=== PATIENT | female | born 1940 | race Caucasian/White ===

== ENCOUNTER 2016-12-12 13:09 | Emergency (ER) | payer MEDICARE, BC ==
[2016-12-12 13:16] VITALS: BP 171/88
--- NOTE | 2016-12-12 14:38 | ED ---
Laceration/Wound HPI - HPI Summary HPI Summary: 76 female presents after sustaining a laceration to her left anterior hand while using a chainsaw to cut a tree down that had fell and blocked her driveway. Patient is not on blood thinners and has no other complaints at this time. Denies loss of sensation, numbness/tingling, bone/tendon exposure and loss of ROM. No pain at this time. - History of Current Complaint Stated Complaint: LT HAND LAC/CHAINSAW Time Seen by Provider: 12/12/16 13:24 Hx Obtained From: Patient Mechanism of Injury: Sharp/Blunt Trauma Onset/Duration: Sudden Onset Alleviating: Compression Timing: Constant Onset Severity: Mild Current Severity: Mild Pain Intensity: 1 Pain Scale Used: 0-10 Numeric Associated Signs & Symptoms: Negative Related Hx: Dominant Hand (Right) PMH/Surg Hx/FS Hx/Imm Hx Endocrine/Hematology History: Denies: Hx Diabetes, Hx Anemia Cardiovascular History: Denies: Hx Hypertension Respiratory History: Denies: Hx Asthma - Cancer History Hx Chemotherapy: Yes - BREAST Hx Radiation Therapy: Yes - BREAST, 2010 Infectious Disease History: No Infectious Disease History: Denies: Traveled Outside the [place] in Last 30 Days - Family History Known Family History: Positive: None - Social History Alcohol Use: Rare Substance Use Type: Reports: None Smoking Status (MU): Never Smoked Tobacco Review of Systems Constitutional: Negative Cardiovascular: Negative Respiratory: Negative Gastrointestinal: Negative Musculoskeletal: Negative Positive: Other - laceration Neurological: Negative Psychological: Normal All Other Systems Reviewed And Are Negative: Yes Physical Exam Triage Information Reviewed: Yes Vital Signs On Initial Exam: Initial Vitals Temp Pulse Resp BP Pulse Ox 97.5 F 100 18 171/88 99 12/12/16 13:12 12/12/16 13:12 12/12/16 13:12 12/12/16 13:12 12/12/16 13:12 tachy and high BP first set of vitals. were re-checked and improved to normal ranges. patient did just experience traumatic event/pain for original vitals to be elevated. Vital Signs Reviewed: Yes Appearance: Positive: Well-Appearing, No Pain Distress, Well-Nourished Skin: Positive: Warm, Skin Color Reflects Adequate Perfusion - <2 second cap refill, Dry, Other - 4 cm laceration on left thenar eminense with minimal bleeding. jagged in shape from chainsaw blade. some avulsion/skin flap. sutured without complicatin and using sterile technique. Head/Face: Positive: Normal Head/Face Inspection Eyes: Positive: Conjunctiva Clear ENT: Positive: Hearing grossly normal Neck: Positive: Supple, Nontender Respiratory/Lung Sounds: Positive: Clear to Auscultation, Breath Sounds Present Cardiovascular: Positive: Normal, RRR, Pulses are Symmetrical in both Upper and Lower Extremities - 2+ radial bilateral Musculoskeletal: Positive: Normal, Strength/ROM Intact. Negative: Edema Left Neurological: Positive: Normal, Sensory/Motor Intact, Alert, Oriented to Person Place, Time, CN Intact II-III Diagnostics - Vital Signs Vital Signs Temp Pulse Resp BP Pulse Ox 12/12/16 13:12 97.5 F 100 18 171/88 99 - Laboratory Lab Statement: Any lab studies that have been ordered have been reviewed, and results considered in the medical decision making process. Laceration Repair Course/Dx - Course Course Of Treatment: patient did not want pain management at this time. 5 simple sutures in left thenar eminence without complication using sterile technique. Closed nicely. due to DELIA and PE findings a x-ray did not seem necessary at this time. aware of signs of infections and to have sutures removed in 7 days. - Differential Dx Differental Diagnoses: Foreign Body, Hematoma, Laceration - Clinical Impression Provider Diagnoses: Laceration of left hand Discharge - Discharge Plan Condition: Stable Disposition: HOME Patient Education Materials: Laceration (ED), Care For Your Stitches (ED) Referrals: Bing Rodney MD [Primary Care Provider] - Additional Instructions: Have stitches removed within the next 7 days. Keep an eye out for signs of infection such as redness, discharge, fever/chills, and warmth to the area. Follow up with primary care to ensure proper healing. You may take tylenol or motrin for pain/soreness as needed.
== END 2016-12-12 14:50 | disposition home or self-care (01) ==
LOC: ED 13:09
DX: S61.412A Laceration without foreign body of left hand, initial encounter (principal); W29.3XXA Contact with powered garden and outdoor hand tools and machinery, initial encounter; Y93.9 Activity, unspecified; Y92.9 Unspecified place or not applicable
CPT/HCPCS: 12002; 99281